=== PATIENT | female | born 1970 | race Caucasian/White ===

== ENCOUNTER → 2016-10-29 | Outpatient (CLI) | payer OTHER | LOC: LABWHC1 10:02 | PROVIDERS: ATTEND Internal Medicine Endocrinology, Diabetes & Metabolism | DX: E03.8 Other specified hypothyroidism (principal) | CPT/HCPCS: 36415; 84443 ==

== ENCOUNTER → 2017-10-15 | Outpatient (CLI) | payer OTHER | END | disposition home or self-care (01) | LOC: LABWHC1 15:54 | PROVIDERS: ATTEND Internal Medicine Endocrinology, Diabetes & Metabolism | DX: E03.8 Other specified hypothyroidism (principal) | CPT/HCPCS: 36415; 84443 ==

== ENCOUNTER → 2018-06-23 | Outpatient (CLI) | payer BC ==
--- NOTE | 2018-06-23 13:09 | MM ---
Reason for exam: screening (asymptomatic). Last mammogram was performed 3 years and 7 months ago. History: Family history of breast cancer in grandmother at age 80. Physical Findings: A clinical breast exam by your physician is recommended on an annual basis and results should be correlated with mammographic findings. MG 3D Screening Mammo W/Cad Bilateral CC and MLO view(s) were taken. Prior study comparison: November 09, 2014, bilateral MG screening mammo w CAD. April 09, 2013, bilateral digital screening mammo w/CAD. The breast tissue is heterogeneously dense. This may lower the sensitivity of mammography. No significant changes when compared with prior studies. ASSESSMENT: Benign, BI-RAD 2 RECOMMENDATION: Routine screening mammogram of both breasts in 1 year.
== END | disposition home or self-care (01) ==
LOC: RADMAMWWP 06:55
PROVIDERS: ATTEND Obstetrics & Gynecology Obstetrics
DX: Z12.31 Encounter for screening mammogram for malignant neoplasm of breast (principal)
CPT/HCPCS: 77063; 77067

== ENCOUNTER → 2018-08-27 | Outpatient (CLI) | payer BC | END | disposition home or self-care (01) | LOC: LABWHC1 16:43 | PROVIDERS: ATTEND Internal Medicine Endocrinology, Diabetes & Metabolism | DX: E03.8 Other specified hypothyroidism (principal) | CPT/HCPCS: 36415; 84443 ==

== ENCOUNTER → 2018-10-20 | Outpatient (CLI) | payer BC | END | disposition home or self-care (01) | LOC: LABWHC1 09:56 | PROVIDERS: ATTEND Internal Medicine Endocrinology, Diabetes & Metabolism | DX: E03.8 Other specified hypothyroidism (principal) | CPT/HCPCS: 36415; 84443 ==

== ENCOUNTER → 2019-05-18 | Outpatient (CLI) | payer BC | END | disposition home or self-care (01) | LOC: LABWHC1 11:17 | PROVIDERS: ATTEND Internal Medicine Endocrinology, Diabetes & Metabolism | DX: E03.8 Other specified hypothyroidism (principal) | CPT/HCPCS: 36415; 84443 ==

== ENCOUNTER → 2019-09-01 | Outpatient (CLI) | payer BC | END | disposition home or self-care (01) | LOC: LABWHC1 10:39 | PROVIDERS: ATTEND Internal Medicine Endocrinology, Diabetes & Metabolism | DX: E03.8 Other specified hypothyroidism (principal) | CPT/HCPCS: 36415; 84443 ==

== ENCOUNTER → 2020-03-01 | Outpatient (CLI) | payer BC | END | disposition home or self-care (01) | LOC: LABWHC1 16:27 | PROVIDERS: ATTEND Internal Medicine Endocrinology, Diabetes & Metabolism | DX: E03.8 Other specified hypothyroidism (principal) | CPT/HCPCS: 36415; 84443 ==

== ENCOUNTER 2020-04-04 02:17 | Emergency (ER) | payer BC ==
--- NOTE | 2020-04-04 02:28 | ED ---
Lower Extremity Injury HPI - General Chief Complaint: Extremity Injury, Lower Stated Complaint: Ankle Injury Time Seen by Provider: 04/04/20 02:22 Source: patient, RN notes reviewed, old records reviewed Mode of arrival: wheelchair Limitations: no limitations - History of Present Illness Initial Comments: This is a 49-year-old female DF for evaluation. Patient presents today for evaluation of right ankle. PATIENT is had severe right ankle pain unable to bear weight on the right ankle. Otherwise noted medication injury noted. Patient is in severe pain in the right ankle with some swelling and inability to move secondary to pain. Patient denies drugs or alcohol, again denies any other complaints MD Complaint: ankle injury (Right-sided) -: hour(s) Injury: Ankle: Right Type of Injury: inversion Place: home Severity: moderate Severity scale (1-10): 7 Improves With: immobilization Worsens With: weight bearing Context: fall Associated Symptoms: snap/pop sensation, swelling, numbness, unable to bear weight, able to partially bear weight - Related Data Allergies Allergy/AdvReac Type Severity Reaction Status Date / Time No Known Allergies Allergy Verified 04/04/20 02:27 Review of Systems ROS Statement: Those systems with pertinent positive or pertinent negative responses have been documented in the HPI. ROS Other: All systems not noted in ROS Statement are negative. Past Medical History Past Medical History: Asthma, Thyroid Disorder History of Any Multi-Drug Resistant Organisms: None Reported Past Surgical History: Adenoidectomy, Appendectomy, Tonsillectomy, Tubal Ligation Past Psychological History: No Psychological Hx Reported Smoking Status: Never smoker Past Alcohol Use History: Occasional Past Drug Use History: None Reported General Exam Limitations: no limitations General appearance: alert, in no apparent distress Head exam: Present: atraumatic, normocephalic, normal inspection Eye exam: Present: normal appearance, PERRL, EOMI. Absent: scleral icterus, conjunctival injection, periorbital swelling ENT exam: Present: normal exam, mucous membranes moist Neck exam: Present: normal inspection. Absent: tenderness, meningismus, lymphadenopathy Respiratory exam: Present: normal lung sounds bilaterally. Absent: respiratory distress, wheezes, rales, rhonchi, stridor Cardiovascular Exam: Present: regular rate, normal rhythm, normal heart sounds. Absent: systolic murmur, diastolic murmur, rubs, gallop, clicks GI/Abdominal exam: Present: soft, normal bowel sounds. Absent: distended, tenderness, guarding, rebound, rigid Extremities exam: Present: normal inspection, full ROM, tenderness (Right ankle lateral tenderness), normal capillary refill. Absent: pedal edema, joint swelling, calf tenderness Back exam: Present: normal inspection Neurological exam: Present: alert, oriented X3, CN II-XII intact Psychiatric exam: Present: normal affect, normal mood Skin exam: Present: warm, dry, intact, normal color. Absent: rash Course Vital Signs 04/04/20 04/04/20 02:23 03:26 Temperature 98.6 F 98.7 F Pulse Rate 76 78 Respiratory 18 18 Rate Blood Pressure 118/75 111/73 O2 Sat by Pulse 100 100 Oximetry - Reevaluation(s) Reevaluation #1: 04/04/20 04:05 Medical record is reviewed Reevaluation #2: 04/04/20 04:05 Patient has pain control Procedures - Orthopedic Splinting/Casting Injury #1 Side: right Lower Extremity Injury Location: short leg, ankle Lower Extremity Immobilizer: posterior splint, stirrup splint Medical Decision Making - Medical Decision Making 49 female DF status post trip and fall with right ankle fracture lateral malleolus fracture follow-up with orthopedics, splint is placed patient's pain is controlled and she can be discharged - Radiology Data Radiology results: report reviewed (X-ray right ankle is positive for lateral malleolus fracture), image reviewed Disposition Clinical Impression: Closed right ankle fracture, Fall Disposition: HOME SELF-CARE Condition: Good Instructions (If sedation given, give patient instructions): Ankle Fracture (ED) Is patient prescribed a controlled substance at d/c from ED?: No Referrals: Arie Corley MD [Primary Care Provider] - 1-2 days
--- NOTE | 2020-04-04 02:48 | XR ---
EXAM: XR Right Ankle Complete, 3 or More Views CLINICAL HISTORY: ITS.REASON XR Reason: pain TECHNIQUE: Frontal, lateral and oblique views of the right ankle. COMPARISON: No relevant prior studies available. IMPRESSION: Mildly displaced oblique fracture through the distal fibula/lateral malleolus. There is slight widening of the medial clear space of the ankle joint suspicious for ankle joint subluxation.
[2020-04-04] MEDS ORDERED: HYDROmorphone 1 MG/ML 1 ML SYRINGE IM STA (04:06)
[2020-04-04] MEDS ORDERED: ACET/COD 300 MG/30 MG STARTER PACK 6 TAB BTL PO STA (04:06)
[2020-04-04] MEDS ORDERED: IBUPROFEN 800 MG TAB PO STA (04:06)
[2020-04-04] MEDS ORDERED: IBUPROFEN 600 MG STARTER PACK 4 TAB BTL PO STA (04:06)
[2020-04-04 04:48] VITALS: BP 116/79; PULSE 86; RESP 16; TEMP 98.1
== END 2020-04-04 05:29 | disposition home or self-care (01) ==
LOC: EC 02:17
DX: S82.61XA Displaced fracture of lateral malleolus of right fibula, initial encounter for closed fracture (principal); Z90.49 Acquired absence of other specified parts of digestive tract; Z90.89 Acquired absence of other organs; W10.9XXA Fall (on) (from) unspecified stairs and steps, initial encounter; Y92.009 Unspecified place in unspecified non-institutional (private) residence as the place of occurrence of the external cause
CPT/HCPCS: 73610; 99284; 96372; 29515; J1170

== ENCOUNTER 2020-06-30 07:26 | Day surgery (SDC) | payer BC ==
[2020-06-27 10:34] VITALS: BMI 35.5
[~2020-06-30 07:26] MED LIST: DEXAMETHASONE SOD PHOSPHATE 4 MG/ML 1 ML VIAL IV ONE; HYDROmorphone 0.5 MG/0.5 ML SYRINGE IVP PRN; LACTATED RINGERS 1,000 ML IV SCH; MIDAZOLAM 2 MG/2 ML VIAL IV PRN; ONDANSETRON 4 MG/2 ML VIAL IVP ONE; SCOPOLAMINE 1.5MG/72HR PATCH TRANSDERM ONE
[2020-06-30] MEDS ORDERED: LIDOCAINE 1% (10MG/ML) FOR IV START INTRADERMA ONE (08:15)
[2020-06-30] MEDS ORDERED: fentaNYL (PF) 50 MCG/ML 2 ML AMP IVP ONE (08:26)
[2020-06-30] MEDS ORDERED: MIDAZOLAM 2 MG/2 ML VIAL IVP ONE (08:26)
[2020-06-30] MEDS ORDERED: KETOROLAC 15 MG/ML 1 ML VIAL ONE (10:13)
[2020-06-30] MEDS ORDERED: SUCCINYLCHOLINE CHLORIDE 100 MG/5 ML SYR IV ONE (10:13)
[2020-06-30] MEDS ORDERED: ROPIVACAINE 5 MG/ML 30 ML VIAL ONE (10:13)
[2020-06-30] MEDS ORDERED: SODIUM CHLORIDE 0.9% (PF) 10 ML VIAL ONE (10:13)
[2020-06-30] MEDS ORDERED: fentaNYL (PF) 50 MCG/ML 2 ML AMP ONE (10:13)
[2020-06-30] MEDS ORDERED: MIDAZOLAM 2 MG/2 ML VIAL ONE (10:13)
[2020-06-30] MEDS ORDERED: ePHEDrine SULFATE/0.9% NACL/PF 50 MG/5 ML SYRINGE IV ONE (10:13)
[2020-06-30] MEDS ORDERED: PROPOFOL 10 MG/ML 20 ML VIAL IV ONE (10:13)
--- NOTE | 2020-06-30 10:19 | P.ANPRN ---
Procedure Note - Anesthesia - Nerve Block Performed Right Popliteal Single Time Out Performed: Yes (8:25) Date of Procedure: 06/30/20 Procedure Start Time: 08:27 Procedure Stop Time: 08:32 Location of Patient: PreOp Indication: Dx/Pain Location (Right ankle), Requested by Surgeon Specifically requested for management of pain by DrJoes Roberto: Mono Alonzo Sedation Type: Sedate with meaningful contact maintained Preparation: Sterile Prep Position: Supine Catheter: None Needle Types: Pajunk Needle Gauge: 21 Ultrasound used to visualize needle placement: Yes (in plane) Ultrasound used to observe medication spread: Yes Injectate: 0.5% Ropivacaine (see comment for volume) (20cc 0.375%) Blood Aspirated: No Pain Paresthesia on Injection Noted: No Resistance on Injection: Normal Image Stored and Saved: Yes Events: Uneventful and Well Tolerated
--- NOTE | 2020-06-30 10:33 | P.ANPRN ---
Procedure Note - Anesthesia - Nerve Block Performed Right Adductor Canal Single Date of Procedure: 06/30/20 Procedure Start Time: 08:34 Procedure Stop Time: 08:38 Location of Patient: PreOp Indication: Acute Post-Operative Pain, Requested by Surgeon Specifically requested for management of pain by DrJose Roberto: Mono Alonzo Sedation Type: Sedate with meaningful contact maintained Preparation: Sterile Prep Position: Supine Catheter: None Needle Types: Pajunk Needle Gauge: 21 Ultrasound used to visualize needle placement: Yes (in Plane) Ultrasound used to observe medication spread: Yes Injectate: 0.5% Ropivacaine (see comment for volume) (0.25% 20cc) Blood Aspirated: No Pain Paresthesia on Injection Noted: No Resistance on Injection: Normal Image Stored and Saved: Yes Events: Uneventful and Well Tolerated
[2020-06-30] MEDS ORDERED: LACTATED RINGERS 1,000 ML IV ONE (12:01)
[2020-06-30 12:37] VITALS: TEMP 97.2
[2020-06-30 12:58] VITALS: RESP 16
[2020-06-30 13:27] VITALS: BP 116/78; PULSE 86
--- NOTE | 2020-06-30 13:46 | XR ---
EXAMINATION TYPE: XR ankle limited RT DATE OF EXAM: 06/30/2020 COMPARISON: NONE TECHNIQUE: Two views submitted HISTORY: Post op FINDINGS: There is postsurgical change in near anatomic alignment. There is soft tissue edema and emphysema. M etallic instruments noted overlying the fibula. IMPRESSION: 1. Postoperative change. Appears in near-anatomic alignment
--- NOTE | 2020-06-30 13:47 | FL ---
EXAMINATION TYPE: FL guidance operating room DATE OF EXAM: 06/30/2020 HISTORY: Fluoroscopy time 23 seconds of fluoroscopy provided. IMPRESSION: 1. Fluoroscopy time.
--- NOTE | 2020-07-04 10:55 | OP ---
OPERATIVE REPORT DATE OF SURGERY: June 30, 2020. PREOPERATIVE DIAGNOSIS: 1. Nonunion, displaced right lateral malleolar fracture. 2. Sprain of anterior talofibular ligament, right ankle. 3. Injury to the peroneal tendon, right ankle. POSTOPERATIVE DIAGNOSES: 1. Nonunion, displaced right lateral malleolar fracture. 2. Sprain of anterior talofibular ligament, right ankle. 3. Injury to the peroneal tendon, right ankle. PROCEDURE: 1. Open reduction, internal fixation, right lateral malleolar fracture. 2. Secondary repair of right lateral ankle ligaments. 3. Open repair of peroneus brevis, right ankle. SURGEON: Mono Alonzo DPM. ANESTHESIA: General with preoperative nerve block. HEMOSTASIS: Right mid calf tourniquet at 250 mmHg. ESTIMATED BLOOD LOSS: Minimal. MATERIALS: One Arthrex lateral malleolar plate with associated locking and nonlocking screws, one 4.75 mm anchor, two Arthrex FiberTak anchors. INJECTABLES: None. SPECIMENS: None. COMPLICATIONS: None. OPERATIVE REPORT: Operative report is as follows: Prior to the patient being brought to the operating room, Anesthesia administered a nerve block on the right lower extremity under ultrasonic guidance and mild sedation then the patient was brought into the operating room, placed on the table in supine position. Timeout was taken to confirm correct patient identifiers, correct site of surgery, correct procedure. When the room was in agreement, the patient was placed under general anesthetic. A well-padded tourniquet was placed on the right midcalf, staying 3-4 inches distal to the fibular neck and a bump underneath the right hip to internally rotate the right leg and then the right leg was prepped and draped in usual manner. The leg was exsanguinated and the tourniquet inflated to 250 mmHg. Attention directed over the lateral malleolus where a midline incision was made over the lateral malleolus, deepened down to the subcutaneous tissue careful to identify, avoid and retract any neurovascular structures and cauterize any bleeding vessels. Blunt dissection continued down to the level of the periosteum overlying the lateral malleolus. Attention was directed first to the peroneal tendons where the peroneal tendon sheath was opened just posterior to the lateral malleolus and once it was opened, the peroneus brevis tendons were inspected and the sheath incision extended as needed for repair. The peroneus brevis indicated a split longitudinal tear with thickening and abnormal tissue. The abnormal tissue was sharply removed and the paratenon stripped from the undersurface of the tendon and then utilizing 4-0 FiberWire, the tendon was re-tubularized then placed back in the fibular groove along with peroneus longus. It was taken through range of motion. It was smooth and non- crepitant, with no catching. The wound was irrigated with antibiotic saline and then the tendon sheath and retinaculum were repaired with nonabsorbable suture. Then attention was directed to the lateral malleolar fracture. Soft tissue was incised over the area of the fracture. The fracture was then freed from the nonhealing tissue and distracted so that the fracture ends could be accessed utilizing a combination of rongeur and curettes. All the soft tissue was removed down to bleeding medullary bone. Once that was completed, the wound was irrigated and then a bone putty was inserted between the fracture fragments and then a bone reduction clamp was used to reduce the fracture down to anatomic length and angle that was temporarily fixated with a wire. Then a premolded Arthrex lateral malleolar plate was positioned over the malleolus under fluoroscopic visualization until the position was correct. Before doing this, FiberTape was placed through a hole in the plate for the repair of the ligaments and set aside then the plate was temporarily fixated and positioning confirmed under fluoroscopy. Locking screws were placed distally in the lateral malleolus under fluoroscopic visualization so that the drill bit and screws did not end up in the lateral gutter of the ankle joint. The screws were a combination of locking and nonlocking and then attention was directed to the proximal holes where there was a compression slot available. Eccentric drilling was done through the compression slot to allow for compression once the screw was inserted. A 3.5 nonlocking screw was inserted and engaged the flutes in the plate, which allowed for compression across the fracture and then two 3.5 locking screws were placed proximally to hold the construct in place. Final fluoroscopic imaging showed proper placement of hardware and reduction of the fracture. Then attention was directed to the anterior aspect of the incision where the capsular and ligamentous structures were incised off the anterior surface of the lateral malleolus. A rongeur was used to remove the cortical bone in the anterior surface of the lateral malleolus to facilitate its ligament re-adhesion upon repair. Roughened edges of the bone were smoothed. Drill holes for the FiberTak anchors were made and then the anchors were inserted and impacted to appropriate depth. Inserters were removed and then tension placed on the suture to lock the knot in place in the bone. Then with the ankle in neutral position, the lateral talus was palpated to an area just anterior to the surface of the joint where the body and the neck meet. A small stab incision was made through the capsule and then a drill hole for the 4.75 anchor was made and then the hole was tapped. The suture on the FiberTak anchors was used to repair the capsular and ligamentous structures back to the anterior surface of the lateral malleolus as well and then the ankle maximally dorsiflexed and inverted. The FiberTape that was fed through the plate was then threaded through the 4.75 mm SwiveLock anchor which was then aligned in the drill hole in the talus and then with ankle neutral inversion and eversion and slight gravity equinus. The anchor was inserted with proper tensioning techniques on the FiberTape and then the anchor was inserted locking the suture in place. The ankle was then tested for stability. Anterior drawer and inversion stress were negative. The suture from the FiberTak anchors was then utilized to over sew the periosteal flap on the repair site in a [id number] fashion. The wound was irrigated again with antibiotic saline. Subcutaneous closure done with 4-0 Monocryl. Skin closure done with olivier. An Arthrex JumpStart dressing was applied over the incision then a dry sterile dressing was applied to the right ankle. The tourniquet was released. Capillary refill returned to all digits of the right foot and then the patient was placed in a below-knee fracture boot with ankle in neutral position. Anesthesia was reversed and the patient was taken to recovery with vital signs stable. MMODL / IJN: [id number] / MTDJocelyn
== END 2020-06-30 13:45 | disposition home or self-care (01) ==
LOC: OR 07:26
PROVIDERS: ATTEND Podiatrist
DX: S82.61XA Displaced fracture of lateral malleolus of right fibula, initial encounter for closed fracture (principal); S93.491A Sprain of other ligament of right ankle, initial encounter; S94.21XA Injury of deep peroneal nerve at ankle and foot level, right leg, initial encounter; E89.0 Postprocedural hypothyroidism; J45.909 Unspecified asthma, uncomplicated; Z79.890 Hormone replacement therapy; Z97.3 Presence of spectacles and contact lenses; Z90.89 Acquired absence of other organs; Z90.49 Acquired absence of other specified parts of digestive tract; Z98.890 Other specified postprocedural states; Z98.51 Tubal ligation status; Z83.3 Family history of diabetes mellitus; W10.9XXA Fall (on) (from) unspecified stairs and steps, initial encounter; X50.1XXA Overexertion from prolonged static or awkward postures, initial encounter
CPT/HCPCS: 27792; 27698; 28200; 64447; 64445; 76942; 73600; C1713 ×4; J2250; J1100; J0690; J2405; J3010; J2795; J1885; J0330; J2704

== ENCOUNTER → 2020-09-13 | Outpatient (CLI) | payer BC | END | disposition home or self-care (01) | LOC: LABWHC1 09:37 | PROVIDERS: ATTEND Internal Medicine Endocrinology, Diabetes & Metabolism | DX: E03.8 Other specified hypothyroidism (principal) | CPT/HCPCS: 36415; 84443 ==

== ENCOUNTER → 2021-04-03 | Outpatient (CLI) | payer BC ==
[2021-04-03 17:07] LABS: Basophils % (A) 1 %; Eosinophils # (A) 0.1 k/uL (0-0.7); Eosinophils % (A) 2 %; HCT 43.3 % (34.0-46.0); HGB 14.2 gm/dL (11.4-16.0); Lymphocytes # (A) 2.2 k/uL (1.0-4.8); Lymphocytes % (A) 38 %; MCH 28.7 pg (25.0-35.0); MCHC 32.9 g/dL (31.0-37.0); MCV 87.4 fL (80.0-100.0); Mean Platelet Volume 8.2; Monocytes # (A) 0.3 k/uL (0-1.0); Monocytes % (A) 5 %; Neutrophils # (A) 3.1 k/uL (1.3-7.7); Neutrophils % (A) 53 %; Platelet Count 274 k/uL (150-450); RBC 4.96 m/uL (3.80-5.40); RDW 13.7 % (11.5-15.5); WBC 5.9 k/uL (3.8-10.6)
== END | disposition home or self-care (01) ==
LOC: LABPAT 15:55
PROVIDERS: ATTEND Obstetrics & Gynecology Obstetrics
DX: Z01.812 Encounter for preprocedural laboratory examination (principal); N92.0 Excessive and frequent menstruation with regular cycle
CPT/HCPCS: 85025

== ENCOUNTER 2021-04-10 06:19 | Day surgery (SDC) | payer BC ==
[2021-04-02 15:58] VITALS: BMI 35.5
[~2021-04-10 06:19] MED LIST changes: -HYDROmorphone 0.5 MG/0.5 ML SYRINGE IVP PRN; +LIDOCAINE 1% (10MG/ML) FOR IV START INTRADERMA PRN; +Pre Op ABX Message 1 EACH MISC MISCELLANE ONE; -SCOPOLAMINE 1.5MG/72HR PATCH TRANSDERM ONE
[2021-04-10] MEDS ORDERED: SCOPOLAMINE 1.5MG/72HR PATCH TRANSDERM ONE (06:54)
[2021-04-10] MEDS ORDERED: HYDROmorphone 0.5 MG/0.5 ML SYRINGE IVP PRN (07:00)
[2021-04-10] MEDS ORDERED: KETOROLAC 15 MG/ML 1 ML VIAL ONE (07:35)
[2021-04-10] MEDS ORDERED: PROPOFOL 10 MG/ML 20 ML VIAL IV ONE (07:35)
[2021-04-10] MEDS ORDERED: LIDOCAINE 1% INJ 10MG/ML (20 ML MDV) ONE (07:35)
[2021-04-10] MEDS ORDERED: fentaNYL (PF) 50 MCG/ML 2 ML AMP ONE (07:35)
[2021-04-10] MEDS ORDERED: SUCCINYLCHOLINE CHLORIDE 100 MG/5 ML SYR IV ONE (07:35)
[2021-04-10] MEDS ORDERED: MIDAZOLAM 2 MG/2 ML VIAL ONE (07:35)
[2021-04-10] MEDS ORDERED: ALBUTEROL HFA INHALER INHALATION ONE (07:35)
[2021-04-10] MEDS ORDERED: PHENYLEPHRINE-0.9% NACL SYG 1,000 MCG/10 ML SYRINGE ONE (07:35)
--- NOTE | 2021-04-10 08:27 | P.OP ---
Date of Procedure: 04/10/21 Preoperative Diagnosis: menorrhagia, dysmenorrhea Postoperative Diagnosis: Same Procedure(s) Performed: Hysteroscopy, dilation curettage, endometrial ablation Anesthesia: TITAA Surgeon: Ariadna Freeman Estimated Blood Loss (ml): 5 IV fluids (ml): 500 Urine output (ml): 100 Pathology: other (Endometrial ablation) Condition: stable Disposition: PACU Indications for Procedure: Heavy menstrual bleeding Operative Findings: Slightly enlarged uterus at 10 cm, normal-appearing uterine cavity Description of Procedure: Patient was seen back to the operating suite where general anesthesia was obtained without difficulty by the anesthesia department. She is prepped and draped in normal sterile fashion in the dorsal lithotomy position. Catheter is used to drain the bladder clear yellow urine. Weighted speculum posterior vaginal vault the anterior cervix is visualized and grasped with a single-tooth tenaculum. The endocervical canal was then serially dilated. The uterus was then sounded to 10 cm. At this time the hysteroscope was placed through the cervix and toward the uterine cavity. The above-noted findings are visualized. At this time the NovaSure device was opened, and set to the appropriate uterine measurements. Uterine length of 6, width of 4, power of 132, total time of 69 seconds. After the cycle was complete the device was removed without difficulty intact. The single-tooth tenaculum was taken off of the interval of the cervix and hemostasis was appreciated. All counts were noted to be correct 2 at the end of the procedure. Patient tolerated procedure well and was taken to the recovery room awake in stable condition.
--- NOTE | 2021-04-10 08:28 | P.HPOB ---
History of Present Illness H&P Date: 04/10/21 Chief Complaint: Menorrhagia, dysmenorrhea This is a 50-year-old female that presents with complaints of increasing heaviness noted with her menstrual cycles and dysmenorrhea. Patient states her menstrual cycles are every 2830 days lasting 7-10 days that are heavy and clots. Patient denies midcycle spotting. Patient is sexually active, and has permanent sterilization. Review of Systems Constitutional: Denies chills, Denies fatigue, Denies fever Ears, nose, mouth and throat: Denies headache Cardiovascular: Denies leg edema Respiratory: Denies dyspnea Gastrointestinal: Denies constipation, Denies diarrhea, Denies nausea, Denies vomiting Genitourinary: Denies Past Medical History Past Medical History: Asthma, Thyroid Disorder Additional Past Medical History / Comment(s): FX ANKLE APRIL 04, 2020 History of Any Multi-Drug Resistant Organisms: None Reported Past Surgical History: Adenoidectomy, Appendectomy, Tonsillectomy, Tubal Ligation Additional Past Surgical History / Comment(s): THYROIDECTOMY. CYST REMOVED FROM RT WRIST Past Anesthesia/Blood Transfusion Reactions: Previous Problems w/ Anesthesia, Motion Sickness Additional Past Anesthesia/Blood Transfusion Reaction / Comment(s): SLOW TO COME OUT OF ANESTHESIA Past Psychological History: No Psychological Hx Reported Smoking Status: Never smoker Past Alcohol Use History: Occasional Past Drug Use History: None Reported - Past Family History Mother Family Medical History: No Reported History Medications and Allergies Home Medications Medication Instructions Recorded Confirmed Type Levothyroxine Sodium [Synthroid] 150 mcg PO DAILY 06/27/20 04/02/21 History Multivitamins, Thera [Multivitamin 1 tab PO DAILY 04/02/21 04/02/21 History (formulary)] Allergies Allergy/AdvReac Type Severity Reaction Status Date / Time No Known Allergies Allergy Verified 04/02/21 15:48 Exam Osteopathic Statement: *. No significant issues noted on an osteopathic structural exam other than those noted in the History and Physical/Consult. Vital Signs Temp Pulse Resp BP Pulse Ox 04/10/21 06:41 97.8 F 76 20 121/80 99 Intake and Output 04/09/21 04/10/21 04/10/21 22:59 06:59 14:59 Intake Total 100 Balance 100 Intake: IV 100 Other: Weight 102.8 kg Targeted physical exam is performed on this date in general this is a well- nourished well-developed non female in no acute distress, breathing is noted to nonlabored, heart has a regular rate and rhythm, abdomen is soft and nontender, on vaginal exam the external genitalia is noted to be normal, vaginal mucosa is noted to be pink and well rugated, cervix is normal in appearance, no lesions are appreciated. Uterus is noted to be mobile, no adnexal masses are appreciated. Assessment and Plan (1) Menorrhagia Current Visit: Yes Status: Acute Code(s): N92.0 - EXCESSIVE AND FREQUENT MENSTRUATION WITH REGULAR CYCLE SNOMED Code(s): 334911787 Plan: 42-year-old female that presents for scheduled hysteroscopy, dilation and curettage, endometrial ablation. Patient is counseled on risks of surgery including uterine perforation, failure procedure, endometrial. Patient states understanding and wishes to proceed. Patient is somewhat childbearing and she's had a tubal ligation in the past.
[2021-04-10 08:30] VITALS: TEMP 96.8
[2021-04-10] MEDS ORDERED: SODIUM CHLORIDE 0.9% 1,000 ML IV ONE (08:40)
[2021-04-10 09:03] VITALS: RESP 14
[2021-04-10 09:23] VITALS: BP 119/79; PULSE 83
[2021-04-10] MEDS ORDERED: LACTATED RINGERS 1,000 ML IV ONE (09:37)
== END 2021-04-10 10:05 | disposition home or self-care (01) ==
LOC: OR 06:19
PROVIDERS: ATTEND Obstetrics & Gynecology Obstetrics
DX: N92.0 Excessive and frequent menstruation with regular cycle (principal); N94.6 Dysmenorrhea, unspecified
CPT/HCPCS: 58563; 81025; 88305; J2250; J1100; J2405; J2001; J3010; J1885; J2370; J0330; J2704; J1170

== ENCOUNTER → 2021-05-01 | Outpatient (CLI) | payer BC | END | disposition home or self-care (01) | LOC: LABWHC1 10:14 | PROVIDERS: ATTEND Internal Medicine Endocrinology, Diabetes & Metabolism | DX: E03.8 Other specified hypothyroidism (principal) | CPT/HCPCS: 36415; 84443 ==

== ENCOUNTER → 2021-05-29 | Outpatient (CLI) | payer BC ==
--- NOTE | 2021-05-31 11:31 | MM ---
Reason for exam: screening (asymptomatic). Last mammogram was performed 2 years and 11 months ago. History: Family history of breast cancer in grandmother at age 80. Physical Findings: A clinical breast exam by your physician is recommended on an annual basis and results should be correlated with mammographic findings. MG 3D Screening Mammo W/Cad Bilateral CC and MLO view(s) were taken. Prior study comparison: June 23, 2018, bilateral MG 3d screening mammo w/cad. November 09, 2014, bilateral MG screening mammo w CAD. The breast tissue is heterogeneously dense. This may lower the sensitivity of mammography. Global asymmetry right posterior upper outer quadrant is unchanged. No significant changes when compared with prior studies. ASSESSMENT: Benign, BI-RAD 2 RECOMMENDATION: Routine screening mammogram of both breasts in 1 year.
== END | disposition home or self-care (01) ==
LOC: RADMAMWWP 07:20
PROVIDERS: ATTEND Obstetrics & Gynecology Obstetrics
DX: Z12.31 Encounter for screening mammogram for malignant neoplasm of breast (principal); Z80.3 Family history of malignant neoplasm of breast
CPT/HCPCS: 77063; 77067

== ENCOUNTER → 2021-10-20 | Outpatient (CLI) | payer BC | END | disposition home or self-care (01) | LOC: LABWHC1 09:41 | PROVIDERS: ATTEND Internal Medicine Endocrinology, Diabetes & Metabolism | DX: E03.8 Other specified hypothyroidism (principal) | CPT/HCPCS: 36415; 84443 ==

== ENCOUNTER → 2022-11-04 | Outpatient (CLI) | payer BC | END | disposition home or self-care (01) | LOC: LABWHC1 07:50 | PROVIDERS: ATTEND Internal Medicine Endocrinology, Diabetes & Metabolism | DX: E03.8 Other specified hypothyroidism (principal) | CPT/HCPCS: 36415; 84443 ==

== ENCOUNTER → 2023-05-20 | Outpatient (CLI) | payer BC | END | disposition home or self-care (01) | LOC: LABWHC1 15:20 | PROVIDERS: ATTEND Internal Medicine Endocrinology, Diabetes & Metabolism | DX: E03.8 Other specified hypothyroidism (principal) | CPT/HCPCS: 36415; 84443 ==

== ENCOUNTER → 2023-10-20 | Outpatient (CLI) | payer BC | END | disposition home or self-care (01) | LOC: LABWHC1 09:04 | PROVIDERS: ATTEND Internal Medicine Endocrinology, Diabetes & Metabolism | DX: E03.8 Other specified hypothyroidism (principal); R73.03 Prediabetes | CPT/HCPCS: 36415; 83036; 84443 ==

== ENCOUNTER → 2024-01-20 | Outpatient (CLI) | payer BC | END | disposition home or self-care (01) | LOC: LABWHC1 07:19 | PROVIDERS: ATTEND Internal Medicine Endocrinology, Diabetes & Metabolism | DX: E03.8 Other specified hypothyroidism (principal) | CPT/HCPCS: 36415; 84443 ==

== ENCOUNTER → 2024-06-09 | Outpatient (CLI) | payer BC ==
--- NOTE | 2024-06-10 07:55 | MM ---
Reason for Exam: Screening (asymptomatic). Last mammogram was performed 3 year(s) and 0 month(s) ago. Patient History: Menarche at age 18. First Full-Term at age 21. Perimenopausal. Maternal grandmother had breast cancer, age 80. Risk Values: Venus 5 year model risk: 0.7%. NCI Lifetime model risk: 5.8%. Prior Study Comparison: 11/09/2014 Bilateral Screening Mammogram, [facility]. 06/23/2018 Bilateral Screening Mammogram, [facility]. 05/29/2021 Bilateral Screening Mammogram, [facility]. Tissue Density: The breasts are heterogeneously dense, which may obscure small masses. Findings: Analyzed By CAD. There is no suspicious new group of microcalcifications or new suspicious mass in either breast. Overall Assessment: Negative, BI-RAD 1 Management: Screening Mammogram of both breasts in 1 year. . Patient should continue monthly self-breast exams. A clinical breast exam by your physician is recommended on an annual basis. This exam should not preclude additional follow-up of suspicious palpable abnormalities. Note on Venus scores and lifetime risk: 1. A Venus score greater than 3% is considered moderate risk. If this is the case, consider specialist referral to assess eligibility for a risk reducing agent. 2. If overall lifetime risk for the development of breast cancer is 20% or higher, the patient may qualify for future screening with alternating mammogram and breast MRI. [facility], , 06/10/2024 7:53 AM. Electronically signed and approved by: Kartik Burch M.D.
== END | disposition home or self-care (01) ==
LOC: RADMAMWWP 15:56
PROVIDERS: ATTEND Obstetrics & Gynecology Obstetrics
DX: Z12.31 Encounter for screening mammogram for malignant neoplasm of breast (principal); R92.333 Mammographic heterogeneous density, bilateral breasts; Z80.3 Family history of malignant neoplasm of breast
CPT/HCPCS: 77063; 77067

== ENCOUNTER → 2024-09-11 | Outpatient (CLI) | payer BC ==
[2024-09-11 13:15] LABS: Basophils # (A) 0.04 X 10*3/uL (0.00-0.10); Basophils % (A) 0.7 %; Eosinophils % (A) 1.8 %; Lymphocytes % (A) 28.6 %; MCH 29.1 pg (27.0-32.0); MCHC 33.3 g/dL (32.0-37.0); MCV 87.4 FL (80.0-97.0); Mean Platelet Volume 10.9 FL (9.5-12.2); Monocytes # (A) 0.38 X 10*3/uL (0.20-1.00); Monocytes % (A) 6.8 %; NRBC Per 100 WBC 0 X 10*3/uL (0.00-0.01); Neutrophils # (A) 3.46 X 10*3/uL (1.80-7.70); Neutrophils % (A) 61.7 %; Platelet Count 264 X 10*3/uL (140-440); RBC 5.15 X 10*6/uL (4.10-5.20); RDW 13.2 % (11.5-14.5)
[2024-09-11 13:31] LABS: ALT 23 U/L (8-44); AST 18 U/L (13-35); Albumin 4.2 g/dL (3.8-4.9); Alkaline Phosphatase 45 U/L (41-126); BUN/Creat Ratio 18.71 Ratio (12.00-20.00); Blood Urea Nitrogen 13.1 mg/dL (9.0-27.0); Calcium 9.3 mg/dL (8.7-10.3); Carbon Dioxide 26.6 mmol/L (21.6-31.8); Chloride 103 mmol/L (96-109); Globulin 2.1 g/dL (1.6-3.3); Glucose 89 mg/dL (70-110); Potassium 4.7 mmol/L (3.5-5.5); Sodium 138 mmol/L (135-145); Total Bilirubin 0.3 mg/dL (0.3-1.2); Total Protein 6.3 g/dL (6.2-8.2)
== END | disposition home or self-care (01) ==
LOC: LABWHC1 09:12
PROVIDERS: ATTEND Family Medicine
DX: Z13.220 Encounter for screening for lipoid disorders (principal); Z13.29 Encounter for screening for other suspected endocrine disorder; E03.9 Hypothyroidism, unspecified; J45.990 Exercise induced bronchospasm; E03.8 Other specified hypothyroidism; Z80.0 Family history of malignant neoplasm of digestive organs
CPT/HCPCS: 36415; 80053; 80061; 84443; 85025